=== PATIENT | female | born 1960 | race Caucasian/White ===

== ENCOUNTER 2019-04-16 16:57 | Emergency (ER) | payer OTHER ==
[~2019-04-16] VITALS: Ht 167.6 cm; Wt 74.4 kg
[2019-04-16 17:13] VITALS: BP_SYST 115
--- NOTE | 2019-04-16 18:30 | NUR ---
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
== END 2019-04-16 18:30 | disposition left against medical advice (07) ==
LOC: SED 16:57
DX: Z53.21 Procedure and treatment not carried out due to patient leaving prior to being seen by health care provider (principal)
CPT/HCPCS: 93005; 99281